=== PATIENT | male | born 1965 | race Caucasian/White ===

== ENCOUNTER 2020-07-03 05:19 | Emergency (ER) | payer BC ==
--- NOTE | 2020-07-03 05:42 | EDM.PDOC ---
ED HPI GENERAL MEDICAL PROBLEM - General Chief Complaint: ENT Problem Stated Complaint: SORE THROAT Time Seen by Provider: 07/03/20 05:38 - History of Present Illness INITIAL COMMENTS - FREE TEXT/NARRATIVE: HISTORY AND PHYSICAL: History of present illness: This is a 55-year-old gentleman with no significant past medical history who presents ER today complaining of sore throat times this morning when he woke up. Patient reports that he has had a cough with occasional productive sputum. Patient has any recent fevers, shakes, chills, nausea, vomiting, diarrhea, dysuria, frequency, urgency, chest pain, shortness of breath. Patient reports he has had sinus drainage as well. Patient reports he feels like his lymph nodes are swollen. Patient reports that last night he was coughing and this morning when he woke up he had pain in his throat. Patient has been tested for coronavirus in the past has been negative. Review of systems: As per history of present illness and below otherwise all systems reviewed and negative. Past medical history: As per history of present illness and as reviewed below otherwise noncontributory. Surgical history: As per history of present illness and as reviewed below otherwise nonc ontributory. Social history: No reported history of drug abuse. Family history: As per history of present illness and as reviewed below otherwise noncontributory. Physical exam: This patient was seen and evaluated during the 2019 SARS-CoV-2 novel coronavirus pandemic period. Community viral transmission is ongoing at time of this encounter and the emergency department is operating under pandemic response procedures. Constitutional: Patient is oriented to person, place, and time. Appears well- developed and well-nourished. No distress. HEENT: Moist mucous membranes Head: Normocephalic and atraumatic Eyes: Right eye exhibits no discharge. Left eye exhibits no discharge. No scleral icterus Neck: Normal range of motion. No tracheal deviation present. Cardiovascular: Normal rate and regular rhythm. Pulmonary: Effort normal, no respiratory distress. Abdominal: No distention Musculoskeletal: Normal range of motion Neurologic: Alert and oriented to person, place and time. Skin: [place], warm and dry. Psychiatric: Normal mood and affect. Behavior is normal. Judgment and thought content normal. Nursing note and vital signs have been reviewed Patient's oropharynx is clear with mild erythema without any exudates or swollen lymph nodes. Patient's tonsils are nontender and nonswollen. Patient has no trismus. Diagnostics: Strep screen: Therapeutics: [] Assessment and plan: 55-year-old gentleman who presents ER today complaining of sore throat that started this morning when he woke up. We will check a strep screen. Patient strep screen is negative. Patient symptoms are more most likely secondary to allergic rhinitis/postnasal drip. I have instructed patient to obtain Anitra-D and utilize at to see if that might help. Patient be given ibuprofen assist with his symptoms. Reassessment at the time of disposition demonstrates that the patient is in no acute distress. The patient has remained stable throughout the entire ED visit and is without objective evidence for acute process requiring urgent intervention or hospitalization. The patient is stable for discharge, counseling is provided as documented above, discussed symptomatic treatment and specific conditions for return. I have spoken with the patient/caregiver and discussed todays findings, in addition to providing specific details for the plan of care. Questions are answered and there is agreement with the plan. Definitive disposition and diagnosis as appropriate pending reevaluation and review of above. - Related Data Allergies Allergy/AdvReac Type Severity Reaction Status Date / Time No Known Allergies Allergy Verified 07/03/20 05:34 Home Meds: Home Meds . [No Known Home Meds] 07/03/20 [History] ED ROS GENERAL - Review of Systems Review Of Systems: See Below ED EXAM, GENERAL - Physical Exam Exam: See Below Course - Vital Signs Last Recorded V/S: Last Vital Signs Temp 98.0 F 07/03/20 05:35 Pulse 71 07/03/20 05:35 Resp 18 07/03/20 05:35 BP 136/91 H 07/03/20 05:35 Pulse Ox 97 07/03/20 05:35 - Orders/Labs/Meds Labs: Laboratory Tests 07/03/20 Range/Units 05:39 Group A Strep (PCR) NOT DETECTED (NOT DETECT) Departure - Departure Time of Disposition: 06:22 Disposition: Home, Self-Care 01 Condition: Good Clinical Impression: Postnasal drip, Sore throat - Discharge Information Instructions: Postnasal Drip, Sore Throat, [id number] Referrals: PCP,None [Primary Care Provider] - Forms: ED Department Discharge Additional Instructions: Your seen and evaluated in the ER today secondary to a sore throat. Your strep screen was negative. Symptoms that you are describing could be secondary to postnasal drip resulting in sore throat. You will be given ibuprofen here in the ED can take that [id number] as well as Anitra to assist with the symptoms. The following information is given to patients seen in the emergency department who are being discharged to home. This information is to outline your options for follow-up care. We provide all patients seen in our emergency department with a follow-up referral. The need for follow-up, as well as the timing and circumstances, are variable depending upon the specifics of your emergency department visit. If you don't have a primary care physician on staff, we will provide you with a referral. We always advise you to contact your personal physician following an emergency department visit to inform them of the circumstance of the visit and for follow-up with them and/or the need for any referrals to a consulting specialist. The emergency department will also refer you to a specialist when appropriate. This referral assures that you have the opportunity for follow-up care with a specialist. All of these measure are taken in an effort to provide you with optimal care, which includes your follow-up. Under all circumstances we always encourage you to contact your private physician who remains a resource for coordinating your care. When calling for follow-up care, please make the office aware that this follow-up is from your recent emergency room visit. If for any reason you are refused follow-up, please contact the [facility] Emergency Department at and asked to speak to the emergency department charge nurse. [facility] - Primary [facility] [address] [place] [id number] [facility] [address] [place] [id number] Sepsis Event Note (ED) - Focused Exam Vital Signs: Vital Signs Temp Pulse Resp BP Pulse Ox 07/03/20 05:35 98.0 F 71 18 136/91 H 97
[2020-07-03] MEDS ORDERED: Ibuprofen 600 MG Tab PO ONE (06:23)
== END 2020-07-03 06:34 | disposition home or self-care (01) ==
LOC: MW.ED 05:19
DX: J02.9 Acute pharyngitis, unspecified (principal); R09.82 Postnasal drip
CPT/HCPCS: 87651; 99283; A9270; 99282